=== PATIENT | female | born 1980 | race Caucasian/White ===

== ENCOUNTER 2018-05-22 14:45 | Outpatient (CLI) | payer OTHER ==
--- NOTE | 2018-05-23 10:55 | MRI Report ---
Reason: GANGLION,LEFT WRIST Procedure Date: 05/22/2018 Accession Number: [id number] / [id number] Procedure: MRI - Wrist LT W/O CPT Code: FULL RESULT: EXAM: LEFT WRIST MRI WITHOUT CONTRAST EXAM DATE: 05/22/2018 03:01 PM. CLINICAL HISTORY: Left wrist ganglion. Preoperative planning. COMPARISON: None. TECHNIQUE: Multiplanar, multisequence T1-weighted and fluid-sensitive sequences of the wrist without contrast. Other: None. FINDINGS: Bones: No fractures or subluxations. No marrow edema. No bone lesions. Cartilage: The articular cartilage is unremarkable. The triangular fibrocartilage complex is unremarkable. Ligaments: The scapholunate and lunotriquetral ligaments are intact. The visualized other intrinsic, extrinsic and collateral ligaments are unremarkable. Tendons: The extensor compartment I through and flexor tendons are unremarkable. Musculature: No edema or fatty atrophy. Other: The contents of the carpal tunnel, including the median nerve, are unremarkable. Guyons canal is unremarkable. There is an approximately 2.4 cm proximal to distal by 0.9 cm dorsal to volar by 1.2 cm medial to lateral ganglion at the dorsal radial aspect of the wrist. The ganglion is dorsal to the triscaphe joint, dorsal to the first and second carpometacarpal joints, and between the extensor carpi radialis longus and brevis tendons. There is an approximately 0.3 x 0.3 x 0.4 cm ganglion volar to the distal radius. No joint effusions. The subcutaneous tissues are unremarkable. IMPRESSION: 1. A 2.4 x 0.9 x 1.2 cm ganglion at the dorsal radial aspect of the wrist. A 0.3 x 0.3 x 0.4 similar ganglion volar to the distal radius. [facility] MUSCULOSKELETAL RADIOLOGY SECTION
== END 2018-05-22 14:46 | disposition home or self-care (01) ==
LOC: DI 14:45
PROVIDERS: ATTEND Orthopaedic Surgery
DX: M67.432 Ganglion, left wrist (principal)

== ENCOUNTER 2018-06-13 06:08 | Day surgery (SDC) | payer OTHER ==
[2018-06-13] MEDS ORDERED: LACTATED RINGERS 1,000 ML IV ONE (06:29)
[2018-06-13] MEDS ORDERED: ceFAZolin 2 GM/50 ML 2 GM/50 ML BAG IV ONE (06:31)
[2018-06-13 06:45] LABS: HCG UR QUAL NEGATIVE
[2018-06-13] MEDS ORDERED: BUPIVACAINE 0.5% PF 30 ML VIAL ONE (07:11)
--- NOTE | 2018-06-13 07:23 | ANESTHESIA ---
Pre-Anesthesia VS, & Labs - Diagnosis Left dorsal wrist mass - Procedure Excise left dorsal wrist mass Vital Signs: Temp Pulse Resp BP Pulse Ox 36.5 C 79 16 107/68 98 06/13/18 06:38 06/13/18 06:38 06/13/18 06:38 06/13/18 06:38 06/13/18 06:38 Height 5 ft 4 in Weight (kg) 57.15 kg - NPO >8 hours - Is Patient ?: No - Lab Results Lab results reviewed: No Home Medications and Allergies Home Medications: Ambulatory Orders Desogestrel-Ethinyl Estradiol [Desogest-Eth Estra 0.15-0.03MG] 1 each PO 06/04/18 Sertraline [Zoloft] 50 mg PO DAILY 06/04/18 Desogestrel-Ethinyl Estradiol [Desogest-Eth Estra 0.15-0.03MG] 1 each PO 06/04/18 Sertraline [Zoloft] 50 mg PO DAILY 06/04/18 Allergies/Adverse Reactions: Allergies Allergy/AdvReac Type Severity Reaction Status Date / Time citalopram [From Celexa] Allergy Itching Verified 06/04/18 11:50 Anes History & Medical History - Anesthetic History Anesthesia Complications: reports: No previous complications Family history of Anesthesia Complications: Denies Family history of Malignant Hyperthermia: Denies - Medical History Cardiovascular: reports: None Pulmonary: reports: None Gastrointestinal: reports: GERD, Ulcers Urinary: reports: None Neuro: reports: None Musculoskeletal: reports: Other Endocrine/Autoimmune: reports: None Blood Disorders: reports: None Skin: reports: None Smoking Status: Former smoker (Short period of smoking) Psychosocial: reports: No issues indicated - Surgical History General: Colonoscopy, EGD, Other Gynecologic: section, Dilation and currettage Exam General: Alert Dental: WNL Mouth Opening: Greater than 4 Fingerbreadths Neck Mobility: Normal Mallampati classification: I Thyromental Distance: greater than 6 cm Respiratory: Lungs clear Cardiovascular: Regular rate Neurological: Normal speech Mental/Cognitive Status: Alert/Oriented X3 Cognitive Status: Within normal limits Plan Anesthesia Type: General Consent for Procedure(s) Verified and Reviewed: Yes Code Status: Attempt Resuscitation ASA classification: 1-Healthy patient Is this case an emergency?: No
[2018-06-13] MEDS ORDERED: BUPIVACAINE 0.5% PF 30 ML VIAL SUBQ ONE (08:03)
[2018-06-13] MEDS ORDERED: LIDOCAINE-MPF 2% 5 ML VIAL IM ONE (09:00)
[2018-06-13] MEDS ORDERED: PROPOFOL 200 MG/20 ML VIAL IVP ONE (09:00)
[2018-06-13] MEDS ORDERED: fentaNYL 100 MCG/2 ML VIAL IVP ONE (09:00)
[2018-06-13] MEDS ORDERED: MIDAZOLAM 2 MG/2 ML VIAL IVP ONE (09:00)
[2018-06-13] MEDS ORDERED: ONDANSETRON 4 MG/2 ML VIAL IVP ONE (09:00)
[2018-06-13] MEDS ORDERED: DEXAMETHASONE 4 MG/ML VIAL IVP ONE (09:00)
[2018-06-13] MEDS ORDERED: oxyCODONE 5 MG TABLET PO PRN (09:16)
[2018-06-13] MEDS ORDERED: ONDANSETRON 4 MG/2 ML VIAL IVP PRN (09:16)
--- NOTE | 2018-06-13 09:34 | OPERATIVE REPORT ---
Operative Report - General Procedure Date: 06/13/18 Planned Procedure: Left dorsal wrist mass excision Pre-Op Diagnosis: Left dorsal wrist ganglion Procedure Performed: Left dorsal wrist mass excision Post Op Diagnosis: Left dorsal wrist ganglion - Procedure Note Primary Surgeon: JACINTA HERRERA Secondary Surgeon: VISHNU CASH Anesthesia Technique: General LMA Estimated Blood Loss (mL): 5 - Other Other Information/Narrative: Tourniquet Time: 56 minutes at 250mmHg. Specimen(s) Information: Left dorsal wrist mass sent for permanent pathology Complication(s): None Condition: Stable to recovery Indications for Surgery: The patient is a 37-year-old left hand dominant female with a long-standing history of a left dorsal wrist mass. She underwent aspiration approximately 10 years ago, with mass recurrence. The mass was then re-aspirated in January, and recurred shortly thereafter. She did not have significant pain at rest, nor limitations in motion but she did not like the way the mass looked, and it was painful when she bumped it into things. Exam demonstrated an approximately 1.5 cm in diameter mobile fluid-filled mass overlying the dorsal carpus and proximal second and third MCP joints. The mass transilluminated and prior aspiration yielded a clear gelatinous fluid consistent with a ganglion cyst. Xrays were normal. MRI demonstrated a large homogenous T2 hyperintense mass intimately involved with the wrist extensor tendons, with an apparent origin off the dorsal scapholunate ligament. The mass appeared to travel distally along the extensor tendons to the point of maximal prominence several centimeters distal to the SL interval. The patient was counseled on treatment options to include continued nonoperative treatment in the form of activity modification, possible reaspiration of the mass versus surgical excision. Risks of surgery were discussed to include bleeding, infection, postoperative wrist stiffness, mass recurrence, damage to nerves, vessels, tendons, ligaments, bone and cartilage and anesthesia complications to include medication side effects and allergic reactions and even . After discussion, she wished to proceed. Findings: Dorsal wrist ganglion cyst with clear gelatinous fluid Descriptions of Procedure: The patient was met in the Preoperative Holding Area, at which time preoperative paperwork was confirmed. The left dorsal wrist was signed. The patient was then brought to Main Operating Room, placed supine on the Operating Room table, at which time pre procedure timeout was conducted to confirm correct patient, correct extremity and correct procedure and also to confirm presence and sterility of all required equipment and to confirm that antibiotics were being administered in the form of 2g of intravenous Ancef. After this was confirmed, general anesthesia was induced. The operative extremity was then prepped and draped over a hand table in the normal sterile fashion after a well-padded tourniquet was placed on the proximal arm. A final timeout was conducted to confirm the correct patient, correct extremity and correct procedure and to confirm that antibiotics had been administered within 30 minutes of incision time. The operative extremity was then exsanguinated with an Esmarch bandage and tourniquet inflated to 250mmHg. A 3cm longitudinal incision was made over the mass and proximally with a #15 blade through skin and subcutaneous tissue. Dissection was further carried out with tenotomy scissors. A branch of the superficial branch of the radial nerve was identified in the field overlying the mass and carefully dissected and protected. The cyst was carefully dissected, removing all surroundingsoft tissue attachments, and dissecting the cyst of the underlying bone and extensor tendons. Once the distal cyst was freed-up, the stalk of the cyst was dissected. It tracked proximally down to the wrist capsule. The mass was then excised off of the wrist capsule. The mass contained homogeneous gelatinous material consistent with a ganglion cyst. The mass was then passed off the back table in a sterile specimen cup fixed in formalin. The wrist capsule where the cyst was removed was cauterized with bipolar electrocautery. The wound was then copiously irrigated. The deep dermal layer was closed with 3-0 monocryl in buried interrupted fashion. The skin was then closed with 3-0 monocryl in running subcuticular fashion. Mastisol and Steri-Strips were applied. 10 mL of half percent plain Marcaine were injected around the incision. The wound was dressed with xeroform, plain 4x4 gauze, followed by webril, and a volar wrist splint followed by a compressive Niko bandage. The tourniquet was let down. The patient was then awakened from general anesthesia without complication, brought to the Post Anesthesia Care for further recovery. Postoperative Plan: 1. The patient will be discharged from the Same Day Surgery Unit when discharge criteria are met. 2. The patient will remain in a splint for approximately 1 week until follow-up, this will be removed in clinic to facilitate early range of motion. 3. Expect return to full duty in 4-6 weeks, and she was counseled that she may have wrist stiffness postoperatively. 4. Discharge precautions were provided in both verbal and written form to the patient
[2018-06-13 10:16] VITALS: BP 105/71
== END 2018-06-13 06:09 | disposition home or self-care (01) ==
LOC: SDS 06:08
PROVIDERS: ATTEND Orthopaedic Surgery
PROC: 0LB60ZZ Excision of Left Lower Arm and Wrist Tendon, Open Approach (ICD-10-PCS; principal; 2018-06-13 07:30)
DX: M67.432 Ganglion, left wrist (principal); F41.9 Anxiety disorder, unspecified; F32.9 Major depressive disorder, single episode, unspecified; K21.9 Gastro-esophageal reflux disease without esophagitis; Z87.891 Personal history of nicotine dependence
CPT/HCPCS: 25112; 81025; A9270; J0690; J7120

== ENCOUNTER 2019-12-25 20:27 | Outpatient (CLI) | payer OTHER | END 2019-12-25 20:28 | disposition home or self-care (01) | LOC: COV 20:27 | PROVIDERS: ATTEND Family Medicine | DX: R05 Cough (principal); Z20.828 Contact with and (suspected) exposure to other viral communicable diseases; R09.81 Nasal congestion; J02.9 Acute pharyngitis, unspecified ==

== ENCOUNTER 2020-01-05 08:00 | Outpatient (CLI) | payer OTHER ==
[2020-01-05 18:00] LABS: BASOPHILS # (AUTO) 0.1 10^3/uL (0.0-0.1); EOSINOPHILS # (AUTO) 0.4 10^3/uL (0.0-0.7); EOSINOPHILS % (AUTO) 4.3 %; HGB - HEMOGLOBIN 13.2 g/dL (12.0-16.0); LYMPHOCYTES # (AUTO) 3.5 10^3/uL (1.5-3.5); LYMPHOCYTES % (AUTO) 36.5 %; MEAN CORPUSCULAR HEMOGLOBIN 27.6 pg (27.0-31.0); MEAN CORPUSCULAR HGB CONC 32.6 g/dL (32.0-36.0); MEAN CORPUSCULAR VOLUME 84.7 fL (81.0-99.0); MEAN PLATELET VOLUME 10.3 fL (7.9-10.8); MONOCYTES # (AUTO) 0.6 10^3/uL (0.0-1.0); MONOCYTES % (AUTO) 6.1 %; NEUTROPHILS # (AUTO) 4.9 10^3/uL (1.5-6.6); NEUTROPHILS % (AUTO) 51.7 %; PLT - PLATELET COUNT 360 10^3/uL (130-450); RED BLOOD COUNT 4.78 10^6/uL (4.20-5.40); RED CELL DISTRIBUTION WIDTH 12.3 % (12.0-15.0); WHITE BLOOD COUNT 9.5 x10^3/uL (4.8-10.8)
[2020-01-05 18:01] LABS: ALBUMIN 4.2 g/dL (3.2-5.5); ALBUMIN/GLOBULIN RATIO 1.3 (1.0-2.2); BILIRUBIN,TOTAL 0.5 mg/dL (0.2-1.0); CALCIUM 9.4 mg/dL (8.5-10.3); CREATININE 0.9 mg/dL (0.4-1.0); TOTAL PROTEIN 7.5 g/dL (6.7-8.2)
== END 2020-01-05 08:01 | disposition home or self-care (01) ==
LOC: LAB.WCP 08:00
PROVIDERS: ATTEND Nurse Practitioner Family
DX: Z00.00 Encounter for general adult medical examination without abnormal findings (principal)
CPT/HCPCS: 36415; 80050

== ENCOUNTER 2020-02-18 09:00 | Outpatient (CLI) | payer OTHER ==
[2020-02-18 12:58] LABS: BUN - BLOOD UREA NITROGEN 12 mg/dL (6-20); CALCIUM 9.3 mg/dL (8.5-10.3); CARBON DIOXIDE - CO2 29 mmol/L (21-32); CHLORIDE 102 mmol/L (101-111); CHOL/HDL RATIO 1.7 (<4.4); CHOLESTEROL 159 mg/dL; CREATININE 0.8 mg/dL (0.4-1.0); GLUCOSE 82 mg/dL (70-100); HDL CHOLESTEROL 95 mg/dL; LDL CHOLESTEROL,CALCULATED 38 mg/dL; LDL/HDL RATIO 0.4 (<4.4); SODIUM 138 mmol/L (135-145); VLDL CHOLESTEROL 26 mg/dL
== END 2020-02-18 09:01 | disposition home or self-care (01) ==
LOC: LAB.WCP 09:00
PROVIDERS: ATTEND Nurse Practitioner Family
DX: Z00.00 Encounter for general adult medical examination without abnormal findings (principal); R94.4 Abnormal results of kidney function studies; R07.9 Chest pain, unspecified
CPT/HCPCS: 36415; 80048; 80061; 83721; 84484

== ENCOUNTER 2020-06-04 09:15 | Outpatient (CLI) | payer OTHER | END 2020-06-04 23:59 | disposition home or self-care (01) | LOC: LAB.R 09:15 | PROVIDERS: ATTEND Family Medicine | DX: R39.9 Unspecified symptoms and signs involving the genitourinary system (principal) | CPT/HCPCS: 87086 ==

== ENCOUNTER 2020-06-13 09:21 | Outpatient (CLI) | payer OTHER ==
--- NOTE | 2020-06-13 10:36 | Ultrasound Report ---
PROCEDURE: Pelvic w/Transvaginal INDICATIONS: PELVIC PAIN TECHNIQUE: Real-time scanning was performed of the pelvic organs, with image documentation. Additional endovagi nal scanning was necessary due to incomplete visualization of the adnexal and endometrial structures by transabdominal scanning. COMPARISON: None. FINDINGS: No pathologic free abdominal or pelvic fluid. Uterus: Uterus is normal in size at 6.5 x 2.7 x 4.1 cm. The endometrium measures 2 mm in combined t hickness. Mildly prominent. The vessels are seen in the bilateral adnexa. Ovaries: Right ovary measures 2.4 x 1.4 x 1.6 cm (3 mL). Left ovary measures 2.3 x 1.7 x 2.2 cm (4 m L). IMPRESSION: No acute pelvic abnormality seen sonographically. Mildly prominent bilateral uterine vessels, which a re nonspecific. Reviewed by: Bhavesh Myrick MD on 06/13/2020 10:35 AM PDT Approved by: Bhavesh Myrick MD on 06/13/2020 10:35 AM PDT Station ID: [id number]
== END 2020-06-13 09:22 | disposition home or self-care (01) ==
LOC: DI 09:21
PROVIDERS: ATTEND Family Medicine
DX: R10.2 Pelvic and perineal pain (principal)

== ENCOUNTER 2020-08-03 11:57 | Emergency (ER) | payer OTHER ==
--- OUTSIDE RECORDS SUMMARY | 2020-08-03 13:22 | EXTERNAL MEDICAL SUMMARY RPT | Continuity of Care Document ---
:1980 Demographics Phone Unavailable Preferred Language Unknown Marital Status Unknown Jewish Affiliation Unknown Race Unknown Ethnic Group Unknown Author Organization [facility] Address [address] [place] [address] Phone Allergies Encounters Medications Problems Results
--- NOTE | 2020-08-03 14:05 | ED Physician Documentation ---
History of Present Illness - Stated complaint Stated Complaint: L SHOULDER PX - Chief complaint Chief Complaint: Trauma Hd/Nk - History obtained from History obtained from: Patient - Additonal information Additional information: Patient comes emergency department chief complaint of left clavicular pain. She states that it started after she did a yoga maneuver which involved wasting herself up on her hands with body weight overlying. She states that she did not feel a snap or a pop, but just had a sudden pain in the area. She indicates that the pain in her clavicle is toward the Proximal aspect and that the pain shoots up through her sternocleidomastoid tendon and muscle. The patient states that she did some other maneuvers and yoga in the couple of days following the initial injury, and that it seemed to hurt worse. Patient also states that she moves certain ways she gets pain in the area. She is mainly here because she went to make sure she does not have a fracture. No other complaints at this time, no other injuries. Review of Systems Ten Systems: 10 systems reviewed and negative Constitutional: reports: Reviewed and negative Eyes: reports: Reviewed and negative Ears: reports: Reviewed and negative Nose: reports: Reviewed and negative Throat: reports: Reviewed and negative Cardiac: reports: Reviewed and negative Respiratory: reports: Reviewed and negative GI: reports: Reviewed and negative : reports: Reviewed and negative Skin: reports: Reviewed and negative Musculoskeletal: reports: Reviewed and negative Neurologic: reports: Reviewed and negative Psychiatric: reports: Reviewed and negative Endocrine: reports: Reviewed and negative Immunocompromised: reports: Reviewed and negative PD PAST MEDICAL HISTORY - Past Medical History Past Medical History: Yes Cardiovascular: None Respiratory: None Neuro: None Endocrine/Autoimmune: None GI: GERD, Ulcers RISK CONTROL MANAGER: None : None HEENT: None Psych: Anxiety, Panic attacks Musculoskeletal: None Derm: None - Past Surgical History Past Surgical History: Yes General: Colonoscopy, EGD /RISK CONTROL MANAGER: section, Dilation and currettage - Present Medications Home Medications: Ambulatory Orders Medication Instructions Recorded Confirmed Sertraline [Zoloft] 50 mg PO DAILY 06/04/18 08/03/20 desogestreL-ethinyl estradioL 1 each PO DAILY 06/04/18 08/03/20 [Desogest-Eth Estra 0.15-0.03MG] Alprazolam [Xanax Xr] 0.5 mg PO DAILY PRN 08/03/20 08/03/20 - Allergies Allergies/Adverse Reactions: Allergies Allergy/AdvReac Type Severity Reaction Status Date / Time citalopram [From Celexa] Allergy Itching Verified 08/03/20 12:14 - Social History Does the pt smoke?: No Smoking Status: Former smoker Does the pt drink ETOH?: Yes Does the pt have substance abuse?: No - Immunizations Immunizations are current?: Yes PD ED PE NORMAL - Vitals Vital signs reviewed: Yes - General General: Alert and oriented X 3, No acute distress - HEENT HEENT: Atraumatic, PERRL, EOMI, Moist mucous membranes - Neck Neck: Supple, no meningeal sign, No bony TTP - Respiratory Respiratory: No respiratory distress - Derm Derm: Normal color, Warm and dry, No rash - Extremities Extremities: No deformity, No edema, No calf tenderness / cord - Neuro Neuro: Alert and oriented X 3, sweet potato disintegrator 2-12 intact, Normal speech - Psych Psych: Normal mood, Normal affect PD ED PE EXPANDED - Free text exam Free text exam: No tenderness over left ribs. Moderate tenderness over proximal clavicle and clavicular head without deformity or noticeable edema. Tenderness extending cranially up the sternocleidomastoid tendon and into the muscle belly. No spasm. Patient is full range of motion neck. Nearly full range of motion of shoulder although this is limited by pain. Results - Rads (name of study) XR clavicle Radiology: Final report received, EMP read indepedently, See rad report (neg) PD MEDICAL DECISION MAKING - ED course Complexity details: reviewed results, re-evaluated patient, considered differential, d/w patient ED course: Clavicular XR was unremarkable. I have d/w pt symptomatic management at home and indications for follow-up with her PCP. Departure - Departure Disposition: Home, Self Care Clinical Impression: Clavicle pain, Sternocleidomastoid muscle tenderness Condition: Stable Instructions: ED Sprain Strain Neck Comments: Your x-ray series looks good. There is no evidence of fracture of her clavicle. You may use ibuprofen, ice, and stretching to help with the symptoms. Please follow-up with your primary care physician as needed. You may resume activity of the area as tolerated. Discharge Date/Time: 08/03/20 14:53
--- NOTE | 2020-08-03 14:13 | XRAY Report ---
PROCEDURE: Clavicle LT INDICATIONS: Trauma, injury, pain TECHNIQUE: 2 views of the clavicle were acquired. COMPARISON: None. FINDINGS: Bones: No fracture or dislocation. The acromioclavicular and glenohumeral joints appear to be normall y aligned. The left sternoclavicular joint is unremarkable and symmetric with respect to the right. N o destructive or suspicious osseous lesion. Included lung apices are clear. Soft tissues: No suspicious soft tissue calcifications. IMPRESSION: No acute finding. Reviewed by: Sven Berry MD on 08/03/2020 2:12 PM PDT Approved by: Sven Berry MD on 08/03/2020 2:12 PM PDT Station ID: [id number]
[2020-08-03 14:53] VITALS: BP 128/64
== END 2020-08-03 14:53 | disposition home or self-care (01) ==
LOC: ED 11:57
DX: M25.512 Pain in left shoulder (principal); M79.18 Myalgia, other site; Z87.891 Personal history of nicotine dependence
CPT/HCPCS: 99283; 99284